=== PATIENT | male | born 1970 | race Caucasian/White ===

== ENCOUNTER 2019-06-17 17:33 | Inpatient (IN) | payer OTHER ==
[~2019-06-17] VITALS: Ht 172.7 cm; Wt 83.2 kg
--- NOTE | 2019-06-17 17:42 | NUR ---
PATIENT AAOX4 PRESENTS TO THE ED WITH C/O LEFT FLANK PAIN. PT STS HE HAS HAD THIS PAIN BEFORE IN WHICH HE HAD SEEN HIS PCP FOR (AWAITING FURTHER TESTING) BEFORE PAIN REOCCURED LAST NIGHT. PT STS PAIN IS 10/10 WITH N/V. BREATHING E/U, SKIN WARM DRY AND INTACT. ABD SOFT, NON DISTENDED, NON TENDER ON PALPATION BUT PAIN RADIATES FROM LEFT FLANK TO LEFT MIDDLE QUADRANT OF THE ABDOMEN. PT C/O N/V DUE TO THE INTENSE PAIN. PT PLACED ON MONITORS FOR FURTHER OBSERVATION. WILL CONTINUE TO MONITOR.
[2019-06-17 18:02] LABS: BASOPHIL % 0.2 % (0-2); PLATELET COUNT 339 x10^3mcL (130-400); RED CELL DISTRIBUTION WIDTH 12.8 % (11.5-14.5); UA SPECIFIC GRAVITY 1.025 (1.005-1.035); microscopic required? YES; urine erythrocyte 3+ (NEGATIVE)
--- NOTE | 2019-06-17 18:09 | NUR ---
MEDICATED PER MD ORDERS- SEE EMR
[2019-06-17 18:31] LABS: CALCIUM 9.5 mg/dL (8.5-10.1); CARBON DIOXIDE 27.2 mmol/L (21-32); CHLORIDE SERUM 97 mmol/L (98-107); GFR1 > 60 mL/min; GLUCOSE SERUM 143 mg/dL (74-106); POTASSIUM SERUM 3.7 mmol/L (3.5-5.1); SODIUM SERUM 135 mmol/L (136-145)
[2019-06-17 18:36] LABS: ALBUMIN 4.2 g/dL (3.4-5.0); ALKALINE PHOSPHATASE 75 U/L (46-116); ALT/SGPT 50 U/L (16-63); AST/SGOT 23 U/L (15-37); BILIRUBIN TOTAL 0.7 mg/dL (0.20-1.00)
[2019-06-17 18:37] LABS: TOTAL PROTEIN, SERUM 8.5 g/dL (6.4-8.2)
--- NOTE | 2019-06-17 18:51 | NUR ---
PATIENT RESTING ON GURNEY- BREATHING E/U, NO ACUTE DISTRESS NOTED-- WILL CONTINUE TO MONITOR.
--- NOTE | 2019-06-17 19:17 | NUR ---
PT REPORT RECEIVED FROM RENNY RAMIREZ TO ASSUME PT CARE. PT AOX4, RESP EVEN AND UNLABORED, NO ACUTE DISTRESS NOTED.
--- NOTE | 2019-06-17 19:19 | NUR ---
REPORT GIVEN TO JAMES BENITEZ FOR CONTINUED CARE OF PATIENT.
[2019-06-17] MEDS ORDERED: ATORVASTATIN CA10 M1 PO (20:25)
[2019-06-17] MEDS ORDERED: MICROZIDE12.5 MG PO (20:26)
[2019-06-17] MEDS ORDERED: JANUVIA100 M1 PO (20:26)
[2019-06-17] MEDS ORDERED: METFORMIN HCL1000 M2 PO (20:26)
[2019-06-17] MEDS ORDERED: COZAAR50 M1 PO (20:26)
--- NOTE | 2019-06-17 20:53 | NUR ---
RECEIVED REPORT FROM ER, AWAITING PTS ARRIVAL.
--- NOTE | 2019-06-17 20:53 | NUR ---
PT REPORT CALLED TO CHANTAL RAMIREZ TO ASSUME PT CARE.
--- NOTE | 2019-06-17 21:00 | NUR ---
PT TRANSFERRED TO RM 210B BY WHEELCHAIR BY ZULEIKA ANGEL. PT AOX4, RESP EVEN AND UNLABORED, NO ACUTE DISTRESS NOTED. PT ACCEPTED BY CHANTAL RAMIREZ TO ASSUME PT CARE, PT AMBULATED TO BED WITHOUT INCIDENT.
--- NOTE | 2019-06-17 21:02 | NUR ---
RECEIVED PT FROM ED VIA WHEELCHAIR, CAME IN DUE TO BACK PAIN. AAOX4. DENIES HEADACHE/DIZZINESS. ABLE TO FOLLOW COMMANDS. NO SOB NOTED, LUNG SOUNDS CTA. DENIES CHEST PAIN/PRESSURE. C/O 3/10 SHARP ABDOMINAL PAIN, DENIES NAUSEA/VOMITING AT THIS TIME. 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 STATED THAT HE HAS FREQUENT URINATION DURING THE NIGHT AND HAS DARK YELLOW COLORED URINE, DENIES BURNING SENSATION/DYSURIA. IV SITE PATENT AND INTACT, RECEIVED PT FROM ED W/ IRVIN AND NS ONGOING. SIDE RAILS UPX2. CALL LIGHT ON REACH. ENDORSED TO PRIMARY NURSE VENKATESH FOR CONTINUITY OF CARE
[2019-06-17 21:13] LABS: CHOLESTEROL/HDL RATIO 4.3
--- NOTE | 2019-06-17 21:18 | NUR ---
RECEIVED PT FROM RICH RAMIREZ. BREATHING IS EVEN AND UNLABORED ON RA. DENIES SOB. PT STATES PAIN IS 4/10 BUT TOLERABLE AND DID NOT NEED PAIN MEDICATION AT THIS TIME. ENCOURAGED PT TO USE CALL LIGHT WHEN EXPERIENCING INTOLERABLE PAIN. PT VERBALIZES UNDERSTANDING. PT REQUESTING SANDWICH, PROVIDED. MADE PT AWARE OF STRAINING HIS URINE FOR STONES. PT VERBALIZES UNDERSTANDING. AT BEDSIDE. BED IN LOWEST POSITION. CALL LIGHT WITHIN REACH. WILL CONTINUE TO MONITOR.
[2019-06-17 21:19] VITALS: BP 165/84
[2019-06-17 21:42] VITALS: Ht 172.7 cm; Wt 83.2 kg
--- NOTE | 2019-06-17 23:06 | NUR ---
PT IS C/O 5/10 SHARP ABD PAIN. MEDICATED WITH NORCO PRN PER JUL ORDER. WILL REASSESS AND CHECK EFFECTIVENESS. BREATHING IS EVEN UNLABORED ON RA. DENIES SOB. NO URINE AT COLLECTED AT THIS TIME. PT VERBALIZES HE USUALLY PEES LATE AT NIGHT D/T HIS DM. BED IN LOWEST POSITION. CALL LIGHT WITHIN REACH. WILL CONTINUE TO MONITOR.
--- NOTE | 2019-06-18 01:18 | NUR ---
PT IS RESTING COMFORTABLY IN BED WITH EYES CLOSED, BUT EASILY AROUSABLE WHEN SPOKEN TO. BREATHING IS EVEN AND UNLABORED ON RA. NO SIGNS OF RESP DISTRESS. BED IN LOWEST POSITION. CALL LIGHT WITHIN REACH. WILL CONTINUE TO MONITOR.
--- NOTE | 2019-06-18 04:46 | NUR ---
PT C/O 03/02 SHARP ABD PAIN. PT STATED PAIN STARTED HALF A HOUR AGO AND THOUGHT IT WOULD GO AWAY, BUT IT INCREASED. EDUCATED PT TO CALL BEFORE IT GETS TOO SEVERE AND UNMANAGABLE. PT VERBALIZES UNDERSTANDING. MEDICATED WITH TORADOL PRN PER JUL ORDER. WILL REASSESS AND CHECK EFFECTIVENESS. BREATHING IS EVEN AND UNLABORED ON RA. NO SIGNS OF RESP DISTRESS. BED IN LOWEST POSITION. CALL LIGHT WITHIN REACH. WILL CONTINUE TO MONITOR.
[2019-06-18 05:49] VITALS: BP 156/100
[2019-06-18 06:11] LABS: BASOPHIL % 0.3 % (0-2); PLATELET COUNT 263 x10^3mcL (130-400); RED CELL DISTRIBUTION WIDTH 12.7 % (11.5-14.5)
--- NOTE | 2019-06-18 06:18 | NUR ---
PT C/O 5/10 SHARP PAIN IN ABD. MEDICATED WITH NORCO PRN PER MAR ORDER. WILL REASSESS AND CHECK EFFECTIVENESS.
[2019-06-18 06:23] VITALS: BP 146/92
--- NOTE | 2019-06-18 06:54 | NUR ---
PT SLEPT IN LONG INTERVALS THROUGHOUT THE NIGHT AND COMPLIED WITH NURSING CARE WITH NO ACUTE EVENTS OCCURRING DURING THE SHIFT. COMFORT AND SAFETY MEASURES MAINTAINED. NO STONES NOTED UPON STRAINING URINE. ALL NEEDS ASSESSED AND ATTENDED TO. WILL CONTINUE TO MONITOR AND ENDORSE CARE TO DAY SHIFT NURSE.
[2019-06-18 07:51] LABS: CALCIUM 8.6 mg/dL (8.5-10.1); CARBON DIOXIDE 24.9 mmol/L (21-32); CHLORIDE SERUM 100 mmol/L (98-107); CREATININE SERUM 1.1 mg/dL (0.7-1.3); GFR1 > 60 mL/min; GLUCOSE SERUM 124 mg/dL (74-106); MAGNESIUM 1.9 mg/dL (1.8-2.4); PHOSPHOROUS 3.4 mg/dL (2.5-4.9); POTASSIUM SERUM 3.6 mmol/L (3.5-5.1); SODIUM SERUM 135 mmol/L (136-145)
[2019-06-18 08:22] LABS: AMPHETAMINE QUAL UR NEGATIVE (See below)
[2019-06-18 08:58] VITALS: BP 142/79
--- NOTE | 2019-06-18 09:27 | NUR ---
PT SITTING IN BED. NO ACUTE DISTRESS NOTED. AM MEDS GIVEN. TOLERATED WELL. STRAINED 450ML CLEAR YELLOW URINE, NO KIDNEY STONES NOTED. DR. SIMON AT BEDSIDE. PT MADE AWARE OF PLAN OF CARE. ALL QUESTIONS AND CONCERNS ADDRESSED. PT DENIES ANY PAIN AT THIS TIME. WILL CONTINUE TO MONITOR. CALL LIGHT WITHIN REACH. BED IN LOWEST POSITION.
--- NOTE | 2019-06-18 11:21 | NUR ---
PT SITTING IN BED. FAMILY AT BEDSIDE. NO ACUTE DISTRESS NOTED. PT C/O PAIN 3/10, DULL ACHEY PAIN IN ABDOMEN. MEDICATED WITH NORCO 7.5/325 PER EMAR. STRAINED 350 ML CLEAR YELLOW URINE, NO STONES NOTED. CHECKED BLOOD SUGAR, 114, NO COVERAGE NEEDED. PT ASKING AGE RESTRICTIONS FOR VISITORS FOR 12 YEAR OLD DAUGHTER TO VISIT. ADVISED PT BECAUSE OF FLU SEASON ONLY VISITORS OVER 18 Y/O ALLOWED. PT AGREES TO POLICY. WILL CONTINUE TO MONITOR. CALL LIGHT IN REACH. BED IN LOWEST POSITION.
--- NOTE | 2019-06-18 14:08 | NUR ---
PT SITTING IN BED WITH FAMILY AT BEDSIDE. PT C/O PAIN 8/10 SHARP PAIN IN BACK. MEDICATED WITH TORADOL PER EMAR. TOLERATED WELL. EMPTIED 350 ML CLEAR YELLOW URINE, NO STONES NOTED. ALL NEEDS MET AT THIS TIME. WILL CONTINUE TO MONITOR. CALL LIGHT IN REACH. BED IN LOWEST POSITION.
[2019-06-18 16:29] VITALS: BP 142/88
--- NOTE | 2019-06-18 16:57 | NUR ---
PT SITTING IN BED. NO ACUTE DISTRESS NOTED. CHECKED BLOOD SUGAR, 101, NO COVERAGE NEEDED. PT C/O PAIN 6/10 IN BACK AND ABDOMEN. MEDICATED WITH NORCO PER EMAR. STRAINED 350 ML CLEAR YELLOW URINE, NO STONES NOTED. WILL CONTINUE TO MONITOR. CALL LIGHT IN REACH. BED IN LOWEST POSITION.
--- NOTE | 2019-06-18 18:05 | NUR ---
PT SITTING IN BED. NO ACUTE DISTRESS NOTED. PT STATES HE HAS NO PAIN AT THIS TIME. STRAINED 125 ML CLEAR YELLOW URINE, NO STONES NOTED. PT DENIES ANY NAUSEA. IV INFUSING TO RAC, NO SWELLING OR REDNESS. DRESSING CDI. WILL ENDORSE CARE TO LITIGATION ATTORNEY RN. CALL LIGHT IN REACH. BED IN LOWEST POSITION.
--- NOTE | 2019-06-18 19:20 | NUR ---
RECEIVED PT FROM AM NURSE, PT AWAKE LAYING DOWN IN BED, AAOX4, ABLE TO FOLLOW COMMANDS AND MAKE NEEDS KNOWN. MED-SURG, DENIES CP/PRESSURE AT THIS TIME. PALPABLE PULSES TO ALL EXTREMETIES. NO EDEMA NOTED. LUNG SOUNDS CTA, BREATHING EVEN AND UNLABORED ON RA. NO ACUTE DISTRESS NOTED. ABD SOFT AND DISTENDED. ACTIVE BS X4 QUAD. DENIES N/V/D. PT STATES HE CONT TO HAVE ON AND OFF PAIN AT HIS LLQ, BUT DENIES ANY PAIN AT THIS TIME. AMBULATORY, IV TO RAC INFUSING FLUIDS PER MAR. SITE WNL. BED AT LOWEST SETTING. SIDE RAILS X2 UP. CALL LIGHT WITHING REACH, WILL CONT TO MONITOR.
[2019-06-18 20:26] VITALS: BP 137/86
--- NOTE | 2019-06-18 21:44 | NUR ---
PT C/O 12/31 LLQ PAIN, MEDICATED WITH PRN TORADOL PER JUL. NO ACUTE DISTRESS NOTED. WILL CONT TO MONITOR.
--- NOTE | 2019-06-19 00:12 | NUR ---
PT LAYING DOWN IN BED WITH EYES CLOSED, BREATHING EVEN AND UNLABORED. NO ACUTE DISTRESS NOTED. SAFETY PRECAUTIONS IN PLACE. CALL LIGHT WITHING REACH. WILL CONT TO MONITOR.
--- NOTE | 2019-06-19 05:04 | NUR ---
PT SLEPT AT INTERVALS THROUGHOUT THE NIGHT, BREATHING EVEN AND UNLABORED ON RA. PT C/O 810 LEFT FLANK PAIN, MEDICATED WITH PRN TORADOL PER JUL. PT ALSO C/O NAUSEA, MEDICATED WITH PRN ZOFRAN PER JUL. PT STATES GOOD RELIEF OF PAIN AND NAUSEA. CONT TO STRAIN URINE, NO STONES SEEN THROUGHOUT THE NIGHT. ALL NEEDS ASSESSED AND ATTENDED TO. IV TO LFA INFUSING FLUIDS PER JUL. SITE WNL. NO ACUTE DISTRESS NOTED. BED AT LOWEST SETTING. SIDE RAILS X2 UP. CALL LIGHT WITHING REACH. WILL CONT TO MONITOR AND ENDORSE CARE TO AM NURSE.
[2019-06-19 05:33] VITALS: BP 144/91
[2019-06-19 06:00] LABS: PLATELET COUNT 226 x10^3mcL (130-400); RED CELL DISTRIBUTION WIDTH 12.8 % (11.5-14.5)
[2019-06-19 06:06] LABS: BASOPHIL % 0 % (0-2)
[2019-06-19 06:50] LABS: CALCIUM 8.6 mg/dL (8.5-10.1); CHLORIDE SERUM 103 mmol/L (98-107); CREATININE SERUM 1.1 mg/dL (0.7-1.3); GFR1 > 60 mL/min; GLUCOSE SERUM 131 mg/dL (74-106); PHOSPHOROUS 2.7 mg/dL (2.5-4.9); POTASSIUM SERUM 3.8 mmol/L (3.5-5.1); SODIUM SERUM 136 mmol/L (136-145)
[2019-06-19 06:58] LABS: CARBON DIOXIDE 25.9 mmol/L (21-32)
--- NOTE | 2019-06-19 07:04 | NUR ---
RECEIVED REPORT FROM POOJA RAMIREZ. PATIENT RESTING IN BED C/O ABDOMINAL PAIN. PT REPORTS HE MAY NEED TO USE THE RESTROOM. IV TO LFA IS PATENT AND INFUSING NS @ 100 ML/HR. NO REDNESS OR PAIN. PT ON ROOM AIR. NO C/O SOB AND NO DISTRESS NOTED. ALL QUESTIONS AND CONCERNS ADDRESSED.
[2019-06-19 08:47] VITALS: BP 151/94
[2019-06-19] MEDS ORDERED: FLO4 PO (08:47)
[2019-06-19] MEDS ORDERED: TOR10 PO (08:48)
[2019-06-19] MEDS ORDERED: LEVAQUIN500 M1 PO (08:48)
[2019-06-19 12:16] VITALS: BP 134/89
[2019-06-19 12:46] VITALS: BP 134/89
--- NOTE | 2019-06-19 13:28 | NUR ---
PATIENT STABLE FOR DISCHARGE PER PARKER. DISCHARGE INSTRUCTIONS AND SUMMARY DISCUSSED WITH PATIENT. PT VERBLAIZED UNDERSTANDING AND WILL NEED TO CHANGE DATE AND TIME OF FOLLOW UP APPOINTMENT. IV REMOVED AND IV POLE CLEARED. PATIENT ESCORTED TO LOBBY.
== END 2019-06-19 13:30 | disposition home or self-care (01) | DRG 693 ==
LOC: ED 17:33 → MU 19:55
PROVIDERS: Specialist; ADMIT Student in an Organized Health Care Education/Training Program
DX: N20.1 Calculus of ureter (principal); N17.0 Acute kidney failure with tubular necrosis; N39.0 Urinary tract infection, site not specified; E87.1 Hypo-osmolality and hyponatremia; E11.65 Type 2 diabetes mellitus with hyperglycemia; I10 Essential (primary) hypertension; R80.9 Proteinuria, unspecified; F12.20 Cannabis dependence, uncomplicated; F10.10 Alcohol abuse, uncomplicated; E78.5 Hyperlipidemia, unspecified; Z68.28 Body mass index [BMI] 28.0-28.9, adult; Z79.84 Long term (current) use of oral hypoglycemic drugs; Z88.0 Allergy status to penicillin
CPT/HCPCS: 82962; G0378; J1885; J1956; J2405; J7030; Q0092